=== PATIENT | male | born 1960 | race Caucasian/White ===

== ENCOUNTER 2017-01-16 05:52 | Emergency (ER) | payer BC, OTHER ==
[~2017-01-16] VITALS: Ht 167.6 cm; Wt 80.9 kg
[2017-01-16 06:21] VITALS: BP 148/100
== END 2017-01-16 07:51 | disposition left against medical advice (07) ==
LOC: ER 05:59
DX: R10.13 Epigastric pain (principal); Z53.21 Procedure and treatment not carried out due to patient leaving prior to being seen by health care provider
CPT/HCPCS: 93005

== ENCOUNTER 2020-02-05 07:22 | Inpatient (IN) | payer BC ==
[~2020-02-05] VITALS: Ht 167.6 cm; Wt 76.7 kg
[2020-02-05] MEDS ORDERED: MORPHINE SULFATE 4 MG/ML SYR/VIAL ONE (07:55)
[2020-02-05] MEDS ORDERED: ONDANSETRON HCL 4 MG/2 ML VIAL ONE ×2 (07:55→11:10)
[2020-02-05] MEDS ORDERED: PROMETHAZINE HCL 25 MG/ML 1ML ONE (08:00)
[2020-02-05] MEDS ORDERED: MORPHINE SULFATE 4 MG/ML SYR/VIAL IV ONE (08:00)
[2020-02-05] MEDS ORDERED: SODIUM CHLORIDE 0.9% 1,000 ML IV ONE (08:00)
[2020-02-05] MEDS ORDERED: PROMETHAZINE HCL 25 MG/ML 1ML IV ONE (08:00)
[2020-02-05] MEDS ORDERED: ONDANSETRON HCL 4 MG/2 ML VIAL IV ONE (08:00)
[2020-02-05 08:22] LABS: Basophils # (auto) 0.1 10 ^3/uL (0-0.2); Eosinophils # (auto) 0.1 10 ^3/uL (0-0.8); Hematocrit 43.6 % (41.0-53.0); Hemoglobin 14.3 g/dL (13.5-17.5); Lymphocytes # (auto) 2.5 10 ^3/uL (0.4-5.4); Lymphocytes % (auto) 35.2 % (10.0-50.0); Mean Corpuscular Hemoglobin 28.8 pg (28.0-32.0); Mean Corpuscular Hgb Conc. 32.7 g/dL (32.0-36.0); Monocytes # (auto) 0.4 10 ^3/uL (0-1.3); Monocytes % (auto) 6.1 % (0.0-12.0); Neutrophils % (auto) 55.7 % (37.0-80.0); Nucleated Red Blood Cells % 0.1 %; Platelet Count (auto) 151 10^3/uL (140-450); Red Blood Cells 4.96 10^6/uL (4.5-5.90); Red Cell Distribution Width 16.1 % (11.8-14.3); White Blood Cell 7.1 10^3/uL (4.4-10.8)
[2020-02-05 08:42] LABS: INR 1.27 (0.9-1.15)
[2020-02-05 08:43] LABS: Albumin 2.8 g/dL (3.4-5.0); Anion Gap 15 (5-15); Blood Urea Nitrogen 18 mg/dL (7-18); Carbon Dioxide 19 mmol/L (21-32); Chloride 105 mmol/L (98-107); Glucose 137 mg/dL (74-106); Magnesium 1.3 mg/dL (1.6-2.6); Sodium 139 mmol/L (136-145)
[2020-02-05 08:45] LABS: Alanine Aminotransferase 58 U/L (16-61); Aspartate Aminotransferase 75 U/L (15-37); BUN/Creatinine Ratio 21.7; GFR African American 121 mL/min; GFR Non-African American 100 mL/min
[2020-02-05 08:50] LABS: Alkaline Phosphatase 141 U/L (45-117); Bilirubin, Total 0.6 mg/dL (0.2-1.0); Total Protein 6.3 g/dL (6.4-8.2)
[2020-02-05 09:01] LABS: Cholesterol 236 mg/dL (< 200)
[2020-02-05] MEDS ORDERED: LIDOCAINE 2%HCL (LOCAL ANESTH.) INJ 20ML MDV ONE (09:01)
[2020-02-05] MEDS ORDERED: IODIXANOL 320MG/ML 100ML BTL IV ONE ×2 (09:01→11:21)
[2020-02-05 09:04] LABS: HDL Cholesterol 34 mg/dL (40-59); LDL Cholesterol 119 mg/dL (< 100); Triglycerides 350 mg/dL (< 150)
[2020-02-05] MEDS ORDERED: MIDAZOLAM HCL 1MG/1ML-2 ML VIAL ONE ×2 (09:08→10:32)
[2020-02-05] MEDS ORDERED: HEPARIN SODIUM (PORCINE) 5000 UNITS/ML 1ML VIAL ONE (09:08)
[2020-02-05] MEDS ORDERED: VERAPAMIL 2.5MG/ML INJ 2ML VIAL IV ONE (09:08)
[2020-02-05] MEDS ORDERED: fentaNYL CITRATE 100 MCG/2 ML VL ONE ×2 (09:08→10:40)
[2020-02-05] MEDS ORDERED: ANGIOMAX 250 MG VIAL IV ONE (09:08)
[2020-02-05 09:16] LABS: Potassium 3.9 mmol/L (3.5-5.1)
[2020-02-05] MEDS: MAGNESIUM SULFATE 1GM/100ML 100 ML IV SCH ×4 (10:15→19:00)
[2020-02-05] MEDS ORDERED: diphenhdrAMINE HCL 50 MG/1 ML VL ONE (11:02)
[2020-02-05] MEDS ORDERED: CLOPIDOGREL BISULFATE 75 MG TAB ONE (11:18)
[2020-02-05] MEDS ORDERED: ASPirin 325 MG TAB ONE (11:18)
[2020-02-05] MEDS ORDERED: IOHEXOL 350 MG/ML 100ML IJ ONE (11:21)
[2020-02-05] MEDS: SODIUM CHLORIDE 0.9% 1,000 ML IV SCH ×2 (12:00→22:04)
[2020-02-05] MEDS ORDERED: MORPHINE SULF INJ 2 MG/ML SYRINGE 1ML IV PRN (12:45)
[2020-02-05] MEDS ORDERED: NITROGLYCERIN 0.4 MG SL TAB SL PRN (12:45)
[2020-02-05] MEDS ORDERED: DEXTROSE (50%) 50ML SYRG IV PRN (12:45)
[2020-02-05 13:45] VITALS: BP 106/62
[2020-02-05 16:13] VITALS: BP 101/60
[2020-02-05 16:37] VITALS: BP 113/88
[2020-02-05] MEDS: InsuLIN REG 1unit/0.01ml Soln (100units/ml) SC SCH ×2 (17:00→22:00)
[2020-02-05] MEDS: ACCU-CHEK COMFORT CURVE STRIP VI SCH ×2 (17:00→22:13)
[2020-02-05 21:31] LABS: Urine Bacteria NONE SEEN /hpf (None Seen); Urine Blood TRACE /uL (Negative); Urine Specific Gravity 1.046 (1.001-1.035); Urine WBC <1 /hpf (0 - 3)
[2020-02-05 22:00] VITALS: BP 103/59
[2020-02-05] MEDS: METOPROLOL TARTRATE 25 MG TAB PO SCH (22:00)
[2020-02-05] MEDS ORDERED: ATORVASTATIN 20 MG TAB PO SCH (22:00)
[2020-02-06 05:00] VITALS: BP 104/62
[2020-02-06 06:41] LABS: Basophils # (auto) 0 10 ^3/uL (0-0.2); Basophils % (auto) 0.6 % (0.0-2.0); Eosinophils # (auto) 0.3 10 ^3/uL (0-0.8); Eosinophils % (auto) 4.2 % (0.0-7.0); Hematocrit 40.6 % (41.0-53.0); Hemoglobin 13.3 g/dL (13.5-17.5); Lymphocytes # (auto) 1.3 10 ^3/uL (0.4-5.4); Lymphocytes % (auto) 19.7 % (10.0-50.0); Mean Corpuscular Hgb Conc. 32.8 g/dL (32.0-36.0); Mean Corpuscular Volume 88.2 fL (80.0-100.0); Monocytes # (auto) 0.5 10 ^3/uL (0-1.3); Monocytes % (auto) 8.1 % (0.0-12.0); Neutrophils # (auto) 4.3 10 ^3/uL (1.6-8.6); Neutrophils % (auto) 67.4 % (37.0-80.0); Nucleated Red Blood Cells % 0.2 %; Platelet Count (auto) 112 10^3/uL (140-450); Red Cell Distribution Width 16.2 % (11.8-14.3); White Blood Cell 6.4 10^3/uL (4.4-10.8)
[2020-02-06 06:57] LABS: Calcium 7.4 mg/dL (8.5-10.1); Potassium 3.7 mmol/L (3.5-5.1)
[2020-02-06 06:59] LABS: BUN/Creatinine Ratio 12.8
[2020-02-06] MEDS: InsuLIN REG 1unit/0.01ml Soln (100units/ml) SC SCH (06:59)
[2020-02-06] MEDS: ACCU-CHEK COMFORT CURVE STRIP VI SCH (06:59)
[2020-02-06 08:00] VITALS: BP 101/60
[2020-02-06] MEDS: METOPROLOL TARTRATE 25 MG TAB PO SCH (08:41)
[2020-02-06] MEDS ORDERED: CLOPIDOGREL BISULFATE 75 MG TAB PO SCH (10:00)
[2020-02-06] MEDS ORDERED: ASPirin 81 mg TAB PO SCH (10:00)
== END 2020-02-06 11:10 | disposition home or self-care (01) | DRG 247 ==
LOC: EDBD 07:22 → ER 07:22 → CATH 1 08:42 → TELE-CENTR 14:36
PROVIDERS: ADMIT Internal Medicine; ATTEND Internal Medicine
PROC: 027135Z Dilation of Coronary Artery, Two Arteries with Two Drug-eluting Intraluminal Devices, Percutaneous Approach (ICD-10-PCS; principal; 2020-02-05)
PROC: 4A023N7 Measurement of Cardiac Sampling and Pressure, Left Heart, Percutaneous Approach (ICD-10-PCS; 2020-02-05)
PROC: B2111ZZ Fluoroscopy of Multiple Coronary Arteries using Low Osmolar Contrast (ICD-10-PCS; 2020-02-05)
PROC: B2151ZZ Fluoroscopy of Left Heart using Low Osmolar Contrast (ICD-10-PCS; 2020-02-05)
DX: I21.9 Acute myocardial infarction, unspecified (principal); E07.9 Disorder of thyroid, unspecified; E11.22 Type 2 diabetes mellitus with diabetic chronic kidney disease; E66.3 Overweight; E78.5 Hyperlipidemia, unspecified; E83.42 Hypomagnesemia; I12.9 Hypertensive chronic kidney disease with stage 1 through stage 4 chronic kidney disease, or unspecified chronic kidney disease; I25.10 Atherosclerotic heart disease of native coronary artery without angina pectoris; N18.9 Chronic kidney disease, unspecified; Z79.4 Long term (current) use of insulin; Z82.3 Family history of stroke; Z82.49 Family history of ischemic heart disease and other diseases of the circulatory system
CPT/HCPCS: 36415; 71045; 80048; 80053; 80061; 81001; 82962; 83036; 83735; 83880; 84443; 84484; 85025; 85610; 85730; 93005; 93306; 99152; 99153; 99291; C1874; C1887; G0378; J2250; J2405; Q9967

== ENCOUNTER 2020-02-09 09:30 | Inpatient (IN) | payer BC ==
[~2020-02-09] VITALS: Ht 167.6 cm; Wt 76.6 kg
[2020-02-09] MEDS ORDERED: ONDANSETRON HCL 4 MG/2 ML VIAL ONE (09:54)
[2020-02-09] MEDS ORDERED: MORPHINE SULFATE 4 MG/ML SYR/VIAL ONE (09:54)
[2020-02-09 10:04] LABS: Basophils # (auto) 0 10 ^3/uL (0-0.2); Basophils % (auto) 0.9 % (0.0-2.0); Eosinophils # (auto) 0.2 10 ^3/uL (0-0.8); Eosinophils % (auto) 4.1 % (0.0-7.0); Hematocrit 43.7 % (41.0-53.0); Hemoglobin 14.5 g/dL (13.5-17.5); Lymphocytes # (auto) 1.2 10 ^3/uL (0.4-5.4); Lymphocytes % (auto) 25.6 % (10.0-50.0); Mean Corpuscular Hemoglobin 28.9 pg (28.0-32.0); Mean Corpuscular Hgb Conc. 33.3 g/dL (32.0-36.0); Monocytes # (auto) 0.4 10 ^3/uL (0-1.3); Monocytes % (auto) 7.8 % (0.0-12.0); Neutrophils # (auto) 2.8 10 ^3/uL (1.6-8.6); Neutrophils % (auto) 61.6 % (37.0-80.0); Platelet Count (auto) 114 10^3/uL (140-450); Red Blood Cells 5.02 10^6/uL (4.5-5.90); Red Cell Distribution Width 16.3 % (11.8-14.3); White Blood Cell 4.6 10^3/uL (4.4-10.8)
[2020-02-09 10:11] LABS: Albumin 3.1 g/dL (3.4-5.0); Calcium 8.6 mg/dL (8.5-10.1); Magnesium 1.9 mg/dL (1.6-2.6); Potassium 3.3 mmol/L (3.5-5.1)
[2020-02-09] MEDS ORDERED: ONDANSETRON HCL 4 MG/2 ML VIAL IM ONE (10:15)
[2020-02-09] MEDS ORDERED: MORPHINE SULFATE 4 MG/ML SYR/VIAL IV ONE (10:15)
[2020-02-09 10:17] LABS: BUN/Creatinine Ratio 15.2; Bilirubin, Total 0.9 mg/dL (0.2-1.0); Total Protein 6.9 g/dL (6.4-8.2)
[2020-02-09] MEDS ORDERED: SODIUM CHLORIDE 0.9% 1,000 ML IV SCH (10:29)
[2020-02-09] MEDS ORDERED: HYDROcodone-ACET 5/325MG TAB PO PRN (10:30)
[2020-02-09] MEDS ORDERED: LORazepam 0.5 MG TAB PO PRN (10:30)
[2020-02-09] MEDS ORDERED: HYDROmorphone HCL 2 MG/ML VL IV ONE ×4 (10:30→16:45)
[2020-02-09] MEDS ORDERED: NITROGLYCERIN 0.4 MG SL TAB SL PRN ×2 (10:30)
[2020-02-09] MEDS ORDERED: DEXTROSE (50%) 50ML SYRG IV PRN (10:30)
[2020-02-09] MEDS ORDERED: ATORVASTATIN 20 MG TAB PO ONE (10:30)
[2020-02-09] MEDS ORDERED: PANTOPRAZOLE 40 MG/10 ML VIAL INJ IV ONE (10:30)
[2020-02-09] MEDS ORDERED: MORPHINE SULF INJ 2 MG/ML SYRINGE 1ML IV PRN ×3 (10:30)
[2020-02-09] MEDS ORDERED: METOPROLOL SUCCINATE XL 50 MG TAB PO ONE (10:30)
[2020-02-09] MEDS ORDERED: ACETAMINOPHEN 325 MG TAB PO PRN (10:30)
[2020-02-09] MEDS ORDERED: MORPHINE SULFATE 4 MG/ML SYR/VIAL IV PRN (10:30)
[2020-02-09] MEDS ORDERED: ASPirin 81 mg TAB PO ONE (10:30)
[2020-02-09] MEDS ORDERED: CLOPIDOGREL BISULFATE 75 MG TAB PO ONE (10:30)
[2020-02-09] MEDS ORDERED: ENOXAPARIN SOD 80 MG/0.8ML SYRINGE SC ONE (10:45)
[2020-02-09] MEDS ORDERED: POTASSIUM CHL 20MEQ/100ML 100 ML IV ONE (10:45)
[2020-02-09] MEDS ORDERED: LEVOTHYROXINE SODIUM 100 MCG TAB PO ONE (11:00)
[2020-02-09] MEDS ORDERED: METO-169 PO (11:07)
[2020-02-09] MEDS ORDERED: OMEG100078 PO (11:07)
[2020-02-09] MEDS ORDERED: MAGN400T40 PO (11:07)
[2020-02-09] MEDS ORDERED: CLOP75TA41 PO (11:07)
[2020-02-09] MEDS ORDERED: INSUINJ37 SC (11:07)
[2020-02-09] MEDS ORDERED: LOSA25TA38 PO (11:07)
[2020-02-09] MEDS ORDERED: POTA99TA3 PO (11:07)
[2020-02-09] MEDS ORDERED: NIAC1TAB32 PO (11:07)
[2020-02-09] MEDS ORDERED: LEVO100T8 PO (11:07)
[2020-02-09] MEDS ORDERED: PSYL0.524 PO (11:08)
[2020-02-09] MEDS ORDERED: MULT-1058 PO (11:08)
[2020-02-09] MEDS: ONDANSETRON HCL 4 MG/2 ML VIAL IV PRN ×3 (11:14→20:00)
[2020-02-09] MEDS ORDERED: MAGNESIUM SULFATE 1GM/100ML 100 ML IV ONE (11:30)
[2020-02-09] MEDS: InsuLIN REG 1unit/0.01ml Soln (100units/ml) SC SCH ×3 (11:30→21:47)
[2020-02-09] MEDS ORDERED: RANOLAZINE ER 500 MG TAB PO ONE (11:30)
[2020-02-09] MEDS ORDERED: MAGNESIUM OXIDE 400 MG TAB PO ONE (11:30)
[2020-02-09] MEDS: ACCU-CHEK COMFORT CURVE STRIP VI SCH ×3 (11:30→21:41)
[2020-02-09] MEDS ORDERED: POTASSIUM CHL 20 Meq TABLET PO ONE (11:30)
[2020-02-09] MEDS: RANOLAZINE ER 500 MG TAB PO SCH (21:57)
[2020-02-09 23:42] VITALS: BP 109/52
[2020-02-10] MEDS: ONDANSETRON HCL 4 MG/2 ML VIAL IV PRN (03:36)
--- NOTE | 2020-02-10 04:26 | NUR ---
Pt requested his blood surgar be check, 156mg/dl
--- NOTE | 2020-02-10 05:14 | NUR ---
call out to hospitalist. Pt is requesting to be placed on IV fluids. States he can't keep food down, this investigative writer witness dry heaves but no vomitus. Pt has been medicated 2 times this shift for c/o nausea.
--- NOTE | 2020-02-10 05:38 | NUR ---
Hospitalist returned call, no new orders at this time, will be waiting for labs.
[2020-02-10 05:56] VITALS: BP 131/76
[2020-02-10] MEDS: LEVOTHYROXINE SODIUM 100 MCG TAB PO SCH (06:43)
[2020-02-10] MEDS: InsuLIN REG 1unit/0.01ml Soln (100units/ml) SC SCH ×4 (06:44→22:00)
[2020-02-10] MEDS: ACCU-CHEK COMFORT CURVE STRIP VI SCH ×4 (06:44→22:25)
--- NOTE | 2020-02-10 06:44 | NUR ---
pt made aware that there are no new orers r/t his request for IV fluids, pt has refused his morning ss insulin, stating"lets just leave it high and see what the hospitalist does.
[2020-02-10 08:00] VITALS: BP 133/74
[2020-02-10] MEDS ORDERED: CLOPIDOGREL BISULFATE 75 MG TAB PO SCH (10:00)
[2020-02-10] MEDS: ASPirin 81 mg TAB PO SCH (10:23)
[2020-02-10] MEDS: CLOPIDOGREL BISULFATE 75 MG TAB PO SCH (10:23)
[2020-02-10] MEDS: METOPROLOL SUCCINATE XL 50 MG TAB PO SCH (10:24)
[2020-02-10] MEDS: DOCUSATE SOD 100 MG CAP PO SCH (10:24)
[2020-02-10] MEDS: RANOLAZINE ER 500 MG TAB PO SCH ×2 (10:27→22:35)
[2020-02-10] MEDS ORDERED: PANTOPRAZOLE 40 MG TAB PO ONE (11:45)
--- NOTE | 2020-02-10 12:00 | NUR ---
MD at bedside MD Garcia aware of patient's status including pt c/o pain to back and requesting "Dilaudid because Morphine does not work". New orders received will medicate as ordered. Patient states back pain "is not bad right now" so refused need for pain meds at this time. Cont to monitor
[2020-02-10 13:00] VITALS: BP 126/68
[2020-02-10 15:17] LABS: Urine Bacteria NONE SEEN /hpf (None Seen); Urine Blood Negative /uL (Negative); Urine Mucus FEW (None Seen); Urine WBC 1 /hpf (0 - 3)
[2020-02-10 15:26] LABS: Alcohol, Urine < 3.0 mg/dL (0-10); Amphetamine Screen, Urine NEGATIVE (NEGATIVE); Barbiturate Scree,Urine NEGATIVE (NEGATIVE); Benzodiazephine Screen, Urine NEGATIVE (NEGATIVE); Cannabinoid Screen, Urine NEGATIVE (NEGATIVE); Cocaine Screen, Urine NEGATIVE (NEGATIVE); Opiate Scree,Urine NEGATIVE (NEGATIVE); Phencyclidine Screen, Urine NEGATIVE (NEGATIVE)
[2020-02-10 17:00] VITALS: BP 107/65
[2020-02-10] MEDS: HYDROmorphone HCL 2 MG/ML VL IV PRN ×2 (17:47→22:38)
--- NOTE | 2020-02-10 19:00 | NUR ---
Patient care endorsed endorsed care to Gillian linton. Patient laying comfortably in bed no acute distress or sob. Patient denies pain at this time, call light within reach.
--- NOTE | 2020-02-10 19:05 | NUR ---
Opening Shift Note Assumed care of patient after receiving report. Patient is awake and alert with no S/S of distress/SOB or pain. Call light within reach, bed in lowest locked position x2 side rails up, HOB semi fowlers. Instructed on POC and to call for assist PRN, will continue to monitor for changes Q1hr and PRN.
[2020-02-10 22:00] VITALS: BP 121/66
[2020-02-10] MEDS ORDERED: ATORVASTATIN 20 MG TAB PO SCH (22:00)
[2020-02-11 05:00] VITALS: BP 116/64
[2020-02-11 06:01] LABS: Basophils # (auto) 0 10 ^3/uL (0-0.2); Basophils % (auto) 0.8 % (0.0-2.0); Eosinophils # (auto) 0.2 10 ^3/uL (0-0.8); Hematocrit 41.2 % (41.0-53.0); Hemoglobin 13.7 g/dL (13.5-17.5); Lymphocytes # (auto) 1.3 10 ^3/uL (0.4-5.4); Lymphocytes % (auto) 23.8 % (10.0-50.0); Mean Corpuscular Hgb Conc. 33.1 g/dL (32.0-36.0); Mean Corpuscular Volume 87.6 fL (80.0-100.0); Monocytes # (auto) 0.4 10 ^3/uL (0-1.3); Monocytes % (auto) 6.8 % (0.0-12.0); Neutrophils # (auto) 3.6 10 ^3/uL (1.6-8.6); Neutrophils % (auto) 64.6 % (37.0-80.0); Nucleated Red Blood Cells % 0.1 %; Platelet Count (auto) 107 10^3/uL (140-450); Red Cell Distribution Width 16.1 % (11.8-14.3); White Blood Cell 5.6 10^3/uL (4.4-10.8)
[2020-02-11 06:20] LABS: BUN/Creatinine Ratio 15.1; Calcium 8.2 mg/dL (8.5-10.1); Potassium 3.6 mmol/L (3.5-5.1)
[2020-02-11] MEDS: LEVOTHYROXINE SODIUM 100 MCG TAB PO SCH (06:50)
[2020-02-11] MEDS: ACCU-CHEK COMFORT CURVE STRIP VI SCH ×2 (06:50→11:30)
[2020-02-11] MEDS: InsuLIN REG 1unit/0.01ml Soln (100units/ml) SC SCH ×2 (06:51→11:30)
[2020-02-11 09:00] VITALS: BP 120/72
[2020-02-11] MEDS ORDERED: PANTOPRAZOLE 40 MG TAB PO SCH (10:00)
[2020-02-11] MEDS: ASPirin 81 mg TAB PO SCH (10:13)
[2020-02-11] MEDS: DOCUSATE SOD 100 MG CAP PO SCH (10:13)
[2020-02-11] MEDS: CLOPIDOGREL BISULFATE 75 MG TAB PO SCH (10:13)
[2020-02-11] MEDS: RANOLAZINE ER 500 MG TAB PO SCH (10:14)
[2020-02-11] MEDS: METOPROLOL SUCCINATE XL 50 MG TAB PO SCH (10:16)
--- NOTE | 2020-02-11 10:30 | NUR ---
[facility] patient [facility]
--- NOTE | 2020-02-11 11:20 | NUR ---
patient declined to wait in room until they are done and is insistent that he be discharged and wait downstairs at the pharmacy for them.
--- NOTE | 2020-02-11 11:25 | NUR ---
IV AND TELE DISCONTINUED, Iv catheter in tact.
--- NOTE | 2020-02-11 12:00 | NUR ---
PATIENT AMBULATED DOWNSTAIRS TO PHARMACY, PATIENT REFUSED WHEELCHAIR.
== END 2020-02-11 12:00 | disposition home or self-care (01) | DRG 391 ==
LOC: ER 09:30 → EDBD 09:30 → TELE 09:31 → TELE-WESTW 14:38
PROVIDERS: ADMIT Hospitalist; ATTEND Internal Medicine
DX: K21.9 Gastro-esophageal reflux disease without esophagitis (principal); I21.A1 Myocardial infarction type 2; E44.1 Mild protein-calorie malnutrition; I25.10 Atherosclerotic heart disease of native coronary artery without angina pectoris; D69.6 Thrombocytopenia, unspecified; E03.9 Hypothyroidism, unspecified; E11.22 Type 2 diabetes mellitus with diabetic chronic kidney disease; E78.5 Hyperlipidemia, unspecified; E87.6 Hypokalemia; I12.9 Hypertensive chronic kidney disease with stage 1 through stage 4 chronic kidney disease, or unspecified chronic kidney disease; K75.9 Inflammatory liver disease, unspecified; M47.9 Spondylosis, unspecified; N18.9 Chronic kidney disease, unspecified; Z79.4 Long term (current) use of insulin; Z82.3 Family history of stroke; Z82.49 Family history of ischemic heart disease and other diseases of the circulatory system; Z95.5 Presence of coronary angioplasty implant and graft; Z68.27 Body mass index [BMI] 27.0-27.9, adult
CPT/HCPCS: 36415; 71045; 72070; 80048; 80053; 80307; 81001; 82962; 83735; 84443; 84484; 85025; 87081; 87086; C9113; G0378; J1815; J2405

== ENCOUNTER 2023-12-27 09:26 | Inpatient (IN) | payer BC, MEDICARE ==
[~2023-12-27] VITALS: Ht 177.8 cm; Wt 90.0 kg
[~2023-12-27 09:26] MED LIST: CLOP75TA70 PO; INSUINJ37 SC; LEVO100T8 PO; LOSA-533 PO; MAGN400T40 PO; METO-289 PO; MULT-1058 PO; NIAC1TAB32 PO; OMEG-20 PO; POTA99TA3 PO; PSYL0.524 PO
[2023-12-27] MEDS: HEPARIN SODIUM (PORCINE) 5000 UNITS/ML 1ML VIAL IV ONE (09:53)
[2023-12-27] MEDS: ONDANSETRON HCL 4 MG/2 ML VIAL IV ONE (09:54)
[2023-12-27] MEDS: MORPHINE SULFATE 4 MG/ML SYR/VIAL IV ONE (09:54)
[2023-12-27 10:03] VITALS: O2SAT 95
[2023-12-27 10:13] LABS: Basophils # (auto) 0.1 10 ^3/uL (0-0.2); Basophils % (auto) 0.7 % (0.0-2.0); Eosinophils # (auto) 0.2 10 ^3/uL (0-0.8); Eosinophils % (auto) 2.6 % (0.0-7.0); Hematocrit 40.9 % (41.0-53.0); Hemoglobin 14.2 g/dL (13.5-17.5); Lymphocytes # (auto) 2.1 10 ^3/uL (0.4-5.4); Lymphocytes % (auto) 27.6 % (10.0-50.0); Mean Corpuscular Hemoglobin 31.1 pg (28.0-32.0); Mean Corpuscular Hgb Conc. 34.7 g/dL (32.0-36.0); Mean Corpuscular Volume 89.4 fL (80.0-100.0); Monocytes # (auto) 0.7 10 ^3/uL (0-1.3); Monocytes % (auto) 9.3 % (0.0-12.0); Neutrophils # (auto) 4.5 10 ^3/uL (1.6-8.6); Neutrophils % (auto) 59.8 % (37.0-80.0); Nucleated Red Blood Cells % 0.1 %; Red Blood Cells 4.57 10^6/uL (4.5-5.90); White Blood Cell 7.5 10^3/uL (4.4-10.8)
[2023-12-27 10:31] LABS: Alanine Aminotransferase 40 U/L (7-40); Albumin 4.6 g/dL (3.2-4.8); Alkaline Phosphatase 80 U/L (46-116); Anion Gap 10 (5-15); Aspartate Aminotransferase 27 U/L (13-40); BUN/Creatinine Ratio 12.9 (10.0-20.0); Bilirubin, Total 0.5 mg/dL (0.2-1.0); Blood Urea Nitrogen 18 mg/dL (9-23); Carbon Dioxide 23 mmol/L (20-30); Chloride 101 mmol/L (98-107); Glucose 177 mg/dL (74-106); Magnesium 1.8 mg/dL (1.6-2.6); Potassium 4.8 mmol/L (3.5-5.1); Sodium 134 mmol/L (136-145); Total Protein 7.3 g/dL (5.7-8.2)
[2023-12-27] MEDS: HYDROmorphone HCL 2 MG/ML VL/or syr IV ONE ×2 (10:36→14:15)
[2023-12-27] MEDS: LORazepam 2MG/ML-1ML VIAL IV ONE (11:22)
[2023-12-27 11:29] LABS: INR 0.97 (0.9-1.15); Partial Thromboplastin Time 26.8 SEC (24.5-34.5); Prothrombin Time 10.3 sec (9.3-11.8)
[2023-12-27 15:07] LABS: Urine Bacteria None Seen /hpf (None Seen)
[2023-12-27 15:14] LABS: Urine Blood 1+ /uL (Negative); Urine Clarity Clear (Clear); Urine Color Light-Yellow (Yellow); Urine Protein, UAD 1+ (Negative); Urine Specific Gravity 1.022 (1.001-1.035); Urine Urobilinogen Normal (Negative); Urine WBC 1 /hpf (0 - 3)
[2023-12-27] MEDS ORDERED: MORPHINE SULFATE INJ 2 MG/ml SYRG IV PRN (15:30)
[2023-12-27] MEDS ORDERED: NITROGLYCERIN 0.4 MG SL TAB SL PRN ×2 (15:30)
[2023-12-27 16:41] LABS: Magnesium 1.8 mg/dL (1.6-2.6); Triglycerides 622 mg/dL (< 150)
[2023-12-27 16:43] LABS: Cholesterol 232 mg/dL (< 200); HDL Cholesterol 33 mg/dL (40-59)
[2023-12-27 16:53] VITALS: BP 137/84; PULSE 74; RESP 19; TEMP 98.6; O2SAT 97
[2023-12-27 17:00] VITALS: BP 137/84; PULSE 74; RESP 19; TEMP 98.6; O2SAT 97
[2023-12-27] MEDS ORDERED: LISI20TA56 PO (17:32)
[2023-12-27] MEDS ORDERED: TICA90TA PO (17:32)
[2023-12-27] MEDS ORDERED: POTA1080 PO (17:32)
[2023-12-27] MEDS ORDERED: FAMO20TA10 PO (17:32)
[2023-12-27] MEDS ORDERED: INSLISPI SC (17:32)
[2023-12-27] MEDS ORDERED: INSLANTI SC (17:32)
[2023-12-27] MEDS ORDERED: PANT40TA2 PO (17:32)
[2023-12-27 18:50] LABS: INR 0.97 (0.9-1.15); Prothrombin Time 10.3 sec (9.3-11.8)
[2023-12-27 20:00] VITALS: PULSE 96
[2023-12-27] MEDS: ONDANSETRON HCL 4 MG/2 ML VIAL IV PRN (20:24)
[2023-12-27] MEDS: MORPHINE SULFATE 4 MG/ML SYR/VIAL IV PRN (20:25)
[2023-12-27] MEDS ORDERED: DEXTROSE (50%) 50ML SYRG IV PRN (21:00)
[2023-12-27] MEDS: GABAPENTIN 300 MG CAP PO SCH (21:24)
[2023-12-27] MEDS: METOPROLOL TARTRATE 25 MG TAB PO SCH (21:25)
[2023-12-27] MEDS: ENOXAPARIN SOD 40 MG/0.4 ML SYRINGE SC ONE (21:29)
[2023-12-27] MEDS: ACCU-CHEK COMFORT CURVE STRIP VI SCH (21:31)
[2023-12-27] MEDS: SODIUM CHLORIDE 0.9% 1,000 ML IV SCH (21:34)
[2023-12-27] MEDS: InsuLIN REG 1unit/0.01ml Soln (100units/ml) SC SCH (21:43)
[2023-12-27 22:00] VITALS: BP 141/76; PULSE 82; RESP 17; TEMP 97.9; O2SAT 98
[2023-12-27] MEDS ORDERED: ATORVASTATIN 20 MG TAB PO SCH (22:00)
[2023-12-28] VITALS (7 sets, daily range): BP systolic 116–145; BP diastolic 63–85; PULSE 64–78; RESP 16–18; TEMP 97.8–98.5; O2SAT 92–99
[2023-12-28 06:15] LABS: Basophils # (auto) 0.1 10 ^3/uL (0-0.2); Basophils % (auto) 0.6 % (0.0-2.0); Eosinophils # (auto) 0.2 10 ^3/uL (0-0.8); Eosinophils % (auto) 2.5 % (0.0-7.0); Hematocrit 39.1 % (41.0-53.0); Hemoglobin 13.5 g/dL (13.5-17.5); Lymphocytes # (auto) 1.6 10 ^3/uL (0.4-5.4); Lymphocytes % (auto) 20.7 % (10.0-50.0); Mean Corpuscular Hgb Conc. 34.6 g/dL (32.0-36.0); Mean Corpuscular Volume 89.4 fL (80.0-100.0); Monocytes # (auto) 0.6 10 ^3/uL (0-1.3); Neutrophils # (auto) 5.3 10 ^3/uL (1.6-8.6); Neutrophils % (auto) 68.2 % (37.0-80.0); Nucleated Red Blood Cells % 0.1 %; Red Blood Cells 4.37 10^6/uL (4.5-5.90); White Blood Cell 7.7 10^3/uL (4.4-10.8)
[2023-12-28] MEDS: HYDROmorphone HCL 2 MG/ML VL/or syr IV PRN (06:21)
[2023-12-28 06:36] LABS: Alanine Aminotransferase 41 U/L (7-40); Albumin 4.1 g/dL (3.2-4.8); Alkaline Phosphatase 64 U/L (46-116); Anion Gap 8 (5-15); Aspartate Aminotransferase 28 U/L (13-40); BUN/Creatinine Ratio 11.1 (10.0-20.0); Bilirubin, Total 0.6 mg/dL (0.2-1.0); Blood Urea Nitrogen 14 mg/dL (9-23); Calcium 9.3 mg/dL (8.7-10.4); Carbon Dioxide 25 mmol/L (20-30); Chloride 101 mmol/L (98-107); Glucose 177 mg/dL (74-106); Potassium 4.1 mmol/L (3.5-5.1); Sodium 134 mmol/L (136-145)
[2023-12-28] MEDS: ASPirin 81 mg TAB PO SCH (09:19)
[2023-12-28] MEDS: DOCUSATE SOD 100 MG CAP PO SCH (09:19)
[2023-12-28] MEDS: ENOXAPARIN SOD 40 MG/0.4 ML SYRINGE SC SCH (09:20)
[2023-12-28] MEDS: ACETAMINOPHEN 325 MG TAB PO PRN (09:30)
[2023-12-28] MEDS: CYCLOBENZAPRINE HCL 10 MG TAB PO PRN (09:30)
[2023-12-28] MEDS: INSULIN LANTUS (GLARGINE) 1 /0.01ml (100units/ml) SC SCH (21:52)
[2023-12-29] VITALS (8 sets, daily range): BP systolic 110–148; BP diastolic 62–78; PULSE 62–74; RESP 18–20; TEMP 97.8–98.6; O2SAT 91–99
[2023-12-29] MEDS: LEVOTHYROXINE SODIUM 100 MCG TAB PO SCH (06:54)
[2023-12-29] MEDS: FAMOTIDINE 20 MG TAB PO SCH (09:03)
[2023-12-29] MEDS ORDERED: DEXTROSE (50%) 50ML SYRG IV PRN (15:00)
[2023-12-29] MEDS: ACCU-CHEK COMFORT CURVE STRIP VI SCH (17:33)
[2023-12-29] MEDS: InsuLIN REG 1unit/0.01ml Soln (100units/ml) SC SCH ×2 (17:38→21:15)
[2023-12-29] MEDS: HYDROmorphone HCL 2 MG/ML VL/or syr IV PRN (17:57)
[2023-12-29] MEDS: INSULIN LANTUS (GLARGINE) 1 /0.01ml (100units/ml) SC SCH (21:18)
[2023-12-30] VITALS (8 sets, daily range): BP systolic 123–141; BP diastolic 60–68; PULSE 60–81; RESP 17–18; TEMP 98.3–98.5; O2SAT 91–99
[2023-12-30 09:44] LABS: Hepatitis B Surface Antigen Negative (Negative)
[2023-12-30 10:05] LABS: Hepatitis C Antibody Negative (Negative)
[2023-12-30] MEDS: REGADENOSON 0.4 MG/5 ML SYRG IV ONE (10:15)
[2023-12-30] MEDS ORDERED: POTA4.25 PO (16:27)
[2023-12-30] MEDS ORDERED: HYDR25TA4 PO (16:29)
[2023-12-30] MEDS ORDERED: AMLO1TAB23 PO (16:29)
[2023-12-30] MEDS: RANOLAZINE ER 500 MG TAB PO SCH (21:14)
[2023-12-31] MEDS ORDERED: ACETAMINOPHEN 325 MG TAB PO PRN (04:30)
[2023-12-31 05:00] VITALS: BP 149/84; PULSE 85; RESP 19; TEMP 101; O2SAT 96
[2023-12-31 08:30] VITALS: PULSE 75
[2023-12-31 09:25] VITALS: BP 115/64; PULSE 75; RESP 17; TEMP 98.5; O2SAT 97
[2023-12-31] MEDS ORDERED: RANO500T3 PO (11:53)
[2023-12-31] MEDS: HYDROcodone-ACET 5/325MG TAB PO PRN (12:36)
[2023-12-31 13:16] VITALS: BP 132/62; PULSE 68; RESP 17; TEMP 98.5; O2SAT 94
[2023-12-31 13:46] VITALS: BP 132/62; PULSE 68; RESP 17; TEMP 98.5; O2SAT 94
== END 2023-12-31 16:35 | disposition home or self-care (01) | DRG 281 ==
LOC: EDBD 09:26 → ER 09:26 → TELE 15:25 → TELE-E-ADS 16:25
PROVIDERS: ADMIT Nurse Practitioner Family; ATTEND Internal Medicine
DX: I21.4 Non-ST elevation (NSTEMI) myocardial infarction (principal); N17.9 Acute kidney failure, unspecified; E03.9 Hypothyroidism, unspecified; G89.29 Other chronic pain; I10 Essential (primary) hypertension; K21.9 Gastro-esophageal reflux disease without esophagitis; I25.10 Atherosclerotic heart disease of native coronary artery without angina pectoris; Z88.8 Allergy status to other drugs, medicaments and biological substances; E11.9 Type 2 diabetes mellitus without complications; Z87.442 Personal history of urinary calculi; Z95.5 Presence of coronary angioplasty implant and graft; Z82.49 Family history of ischemic heart disease and other diseases of the circulatory system
CPT/HCPCS: 36415; 71045; 78452; 80053; 80061; 81001; 82962; 83735; 83880; 84484; 85025; 85610; 85730; 86803; 87340; 93005; 93017; 93306; 96374; 96375; 96376; 99291; G0378; J1815; J2405